=== PATIENT | male | born 1980 | race Caucasian/White ===

== ENCOUNTER 2017-11-19 12:22 | Emergency (ER) | payer MEDICARE ==
[2017-11-19] MEDS ORDERED: Ibuprofen 800 MG TAB ONE (13:25)
== END 2017-11-19 13:29 | disposition home or self-care (01) ==
LOC: ERS 12:22
DX: K02.9 Dental caries, unspecified (principal); I10 Essential (primary) hypertension; E03.9 Hypothyroidism, unspecified; F31.9 Bipolar disorder, unspecified; F41.9 Anxiety disorder, unspecified
CPT/HCPCS: 99282

== ENCOUNTER 2018-04-12 15:45 | Emergency (ER) | payer MEDICARE ==
[2018-04-12] MEDS ORDERED: Fluorescein Opthalmic Strip ONE (16:12)
[2018-04-12] MEDS ORDERED: Proparacaine 0.5% Opth 15 ML BOT ONE ×2 (16:12→16:35)
[2018-04-12 16:14] LABS: #Basophils 0.1 thou/uL (0.0-0.2); #Eosinphils 0.1 thou/uL (0.0-0.7); #Lymphocytes 1.9 thou/uL (1.20-3.40); #Monocytes 0.9 thou/uL (0.11-0.59); #Neutrophils 6.9 thou/uL (1.40-6.50); %Basophils 0.6 % (0.0-1.0); %Eosinophils 0.7 % (0.0-10.0); %Lymphocytes 19.4 % (21.0-51.0); %Monocytes 9.2 % (0.0-10.0); %Neutrophils 70.1 % (42.0-75.0); Hemoglobin 17.6 g/dL (14.0-18.0); Mean Corpuscular HGB CONC 35.6 g/dL (32.0-36.0); Mean Corpuscular Hemoglobin 30.8 pg (27.0-31.0); Mean Corpuscular Volume 86.5 fL (78.0-98.0); Mean Platelet Volume 6.2 fL (7.4-10.4); Platelet Count 162 thou/uL (130-400); RBC Distribution Width 12.7 % (11.5-14.5); Red Blood Cell (RBC) Count 5.73 mill/uL (4.70-6.10); White Blood Cell (WBC) Count 9.8 thou/uL (4.8-10.8)
[2018-04-12 16:36] LABS: ALT (SGPT) 78 U/L (8-55); AST (SGOT) 37 U/L (5-34); Albumin 4.9 g/dL (3.5-5.0); Alkaline Phosphatase 76 U/L (40-150); Anion Gap 16 mmol/L (10-20); BUN (Urea Nitrogen) 18 mg/dL (8.9-20.6); Bilirubin, Total 0.6 mg/dL (0.2-1.2); Calc. Creatinine Clearance 0 mL/min (70-130); Calcium 9.9 mg/dL (7.8-10.44); Carbon Dioxide 21 mmol/L (22-29); Chloride 103 mmol/L (98-107); Estimated GFR-MDRD 64; Glucose 80 mg/dL (70-105); Potassium 3.7 mmol/L (3.5-5.1); Protein, Total 7.9 g/dL (6.0-8.3); Sodium 136 mmol/L (136-145)
== END 2018-04-12 18:34 | disposition home or self-care (01) ==
LOC: ERS 15:45
DX: T54.3X1A Toxic effect of corrosive alkalis and alkali-like substances, accidental (unintentional), initial encounter (principal); T28.5XXA Corrosion of mouth and pharynx, initial encounter; T26.92XA Corrosion of left eye and adnexa, part unspecified, initial encounter; H16.203 Unspecified keratoconjunctivitis, bilateral; I10 Essential (primary) hypertension; E03.9 Hypothyroidism, unspecified; G89.29 Other chronic pain; F31.9 Bipolar disorder, unspecified; F41.9 Anxiety disorder, unspecified; Z79.899 Other long term (current) drug therapy; Y93.G1 Activity, food preparation and clean up
CPT/HCPCS: 80053; 85025; 90471; 99284; G0390

== ENCOUNTER 2019-11-27 18:04 | Inpatient (IN) | payer MEDICARE ==
[~2019-11-27 18:04] MED LIST: Iopamidol-370 76% 500 ML 1 ML ONE
--- NOTE | 2019-11-27 19:11 | CT ---
CT head noncontrast HISTORY: Left-sided weakness. FINDINGS: There is no evidence of acute intracranial hemorrhage or infarct. The ventricles appear nor mal in size, shape and position. There is no mass effect or shift of midline structures. Visualized paranasal sinuses remain well aerated. IMPRESSION: No acute intracranial abnormalities are demonstrated. Findings were called to Dr. Lomax in the emergency department at 1904 hours. Code CR.
[2019-11-27 19:26] LABS: #Basophils 0.1 thou/uL (0.0-0.2); #Eosinphils 0.1 thou/uL (0.0-0.7); #Lymphocytes 1.7 thou/uL (1.20-3.40); #Monocytes 0.8 thou/uL (0.11-0.59); #Neutrophils 6.4 thou/uL (1.40-6.50); %Basophils 0.8 % (0.0-1.0); %Eosinophils 0.8 % (0.0-10.0); %Lymphocytes 19.1 % (21.0-51.0); %Neutrophils 70.3 % (42.0-75.0); Hemoglobin 15.3 g/dL (14.0-18.0); Mean Corpuscular HGB CONC 35.4 g/dL (32.0-36.0); Mean Corpuscular Hemoglobin 30.8 pg (27.0-31.0); Mean Corpuscular Volume 86.9 fL (78.0-98.0); Mean Platelet Volume 8.3 fL (7.4-10.4); Platelet Count 115 thou/uL (130-400); RBC Distribution Width 13.1 % (11.5-14.5); Red Blood Cell (RBC) Count 4.96 mill/uL (4.70-6.10); White Blood Cell (WBC) Count 9.3 thou/uL (4.8-10.8)
[2019-11-27] MEDS ORDERED: Labetalol HCl 100 MG/20 ML VIAL ONE (19:26)
--- NOTE | 2019-11-27 19:30 | CT ---
CT arteriogram neck with IV contrast and 3-D imaging CT arteriogram head with IV contrast and 3-D imaging CT brain with IV contrast HISTORY: Left-sided weakness. Altered mental status. FINDINGS: Good contrast opacification of the aortic arch with normal origin of the great vessels. Goo d flow into each vertebral and carotid system. Each carotid bifurcation is widely patent. No evidence of dissection or thrombus. Nonspecific lymph nodes along each jugular chain. [place] is intact. Good flow into each cerebral and cerebellar system. No enhancing brain lesions are apparent. IMPRESSION: No abnormalities are demonstrated. Findings were called to Dr. Lomax in the emergency department at 1924 hours. Code CR.
[2019-11-27 19:32] LABS: PTT 23.6 SEC (22.9-36.1); Prothrombin Time 12.7 SEC (12.0-14.7)
[2019-11-27 19:37] LABS: Band 3 % (5-11); Eosinophils 3 % (0-10); Lymphocytes 20 % (21-51); MDiff Complete? YES; Monocytes 6 % (0-10); Neutrophil 66 % (42-75); Platelet Morphology Comment Appears Decreased; RBC Morphology Normal; Reactive Lymphocytes 2 % (0-10)
--- NOTE | 2019-11-27 19:57 | RAD ---
Chest one view HISTORY: Chest pain. Hypertension. FINDINGS: Cardiac silhouette is magnified by projection. Pulmonary vasculature is unremarkable. Media stinum is midline. No confluent airspace consolidation or evidence of pneumothorax. library monitor leads overlie the chest. IMPRESSION: No active cardiopulmonary abnormalities are demonstrated.
[2019-11-27 20:02] LABS: ALT (SGPT) 120 U/L (8-55); AST (SGOT) 66 U/L (5-34); Albumin 4.6 g/dL (3.5-5.0); Alkaline Phosphatase 63 U/L (40-110); Anion Gap 14 mmol/L (10-20); BUN (Urea Nitrogen) 11 mg/dL (8.9-20.6); Bilirubin, Total 0.4 mg/dL (0.2-1.2); Calc. Creatinine Clearance 0 mL/min (70-130); Calcium 9.7 mg/dL (7.8-10.44); Carbon Dioxide 26 mmol/L (22-29); Chloride 104 mmol/L (98-107); Estimated GFR-MDRD 82; Globulin 3.1 g/dL (2.4-3.5); Glucose 82 mg/dL (70-105); Potassium 4.3 mmol/L (3.5-5.1); Protein, Total 7.7 g/dL (6.0-8.3); Sodium 140 mmol/L (136-145)
[2019-11-27] MEDS ORDERED: niCARdipine 20MG In NaCl 20 MG/200 ML BAG ONE (20:43)
[2019-11-27 21:57] VITALS: BMI 37.5
[2019-11-27] MEDS ORDERED: hydrALAZINE 20 MG/ML VIAL SLOW IVP PRN (22:33)
[2019-11-27] MEDS ORDERED: Labetalol HCl 100 MG/20 ML VIAL SLOW IVP PRN (22:33)
[2019-11-27] MEDS ORDERED: niCARdipine 25 MG in Sodium Chloride 0.9% 250 ML 240 ML IVPB PRN (22:33)
[2019-11-27] MEDS ORDERED: Ondansetron ODT 4 MG TAB PO PRN (22:43)
[2019-11-27] MEDS ORDERED: Calcium Carbonate 500 MG ChewTAB PO PRN (22:43)
[2019-11-27] MEDS ORDERED: Bisacodyl 5 MG TAB PO PRN (22:43)
[2019-11-27] MEDS ORDERED: Bisacodyl 10 MG SUPP PR PRN (22:43)
[2019-11-27] MEDS ORDERED: Metoprolol Tartrate 25 MG TAB PO SCH (22:45)
[2019-11-27] MEDS ORDERED: Mirtazapine 30 MG TAB PO SCH (23:00)
[2019-11-27] MEDS: Communication Order-Pharmacy FS SCH (23:09)
[2019-11-27] MEDS: Ondansetron PF 4 MG/2 ML Vial IVP PRN (23:10)
[2019-11-27] MEDS: Acetaminophen 325 MG TAB PO PRN (23:16)
[2019-11-28] MEDS ORDERED: Labetalol HCl 100 MG/20 ML VIAL SLOW IVP PRN (00:49)
[2019-11-28] MEDS ORDERED: cloNIDine 0.1 MG TAB PO PRN (00:49)
--- NOTE | 2019-11-28 01:50 | HP ---
CHIEF COMPLAINT: Stroke-like symptoms. HISTORY OF PRESENT ILLNESS: The patient is a 39-year-old male with hypertension, anxiety, bipolar disorder, presented to the emergency room with above complaints. History obtained from the patient. Over the last 2 days, the patient has been having issues with high blood pressure. Today, at around 3:30 p.m., while he was at home resting, he had sudden onset of dizziness along with disorientation as well as pressure behind his head. He was nauseous and had difficulty concentrating. He also had numbness on his left side of his body. He had difficulty ambulating as well. He was found to have elevated blood pressure. He presented to the emergency room. In the emergency room, his disorientation got worse. His NIH was 3. He received tPA. His symptoms started improving after tPA. His blood pressure at home was 172/117. At this time, his symptoms have significantly improved. He still has some left-sided weakness mainly in his left leg. His confusion has improved significantly. PAST MEDICAL HISTORY: 1. Hypertension. 2. Hypothyroidism. 3. Chronic low back pain. 4. Anxiety. 5. Bipolar disorder. 6. Depression. PAST SURGICAL HISTORY: 1. Right carpal tunnel surgery. 2. Vasectomy. 3. Colonoscopy. 4. Nasal surgery. ALLERGIES: THE PATIENT IS ALLERGIC TO CITALOPRAM, CYMBALTA, PROZAC, AND TOPAMAX. CURRENT HOME MEDICATIONS: 1. Fish oil 200 mg daily. 2. Gabapentin 300 mg 3 times a day. 3. Levothyroxine 50 mcg daily. 4. [place] 450 mg b.i.d. 5. Metoprolol tartrate 50 mg b.i.d. 6. Remeron 30 mg at bedtime. 7. Multivitamin one tablet daily. 8. Seroquel 800 mg at bedtime. 9. Effexor extended release 225 mg at bedtime. 10. Vitamin B complex daily. SOCIAL HISTORY: The patient currently lives at home with his family. He denies current use of smoking, alcohol, or drug use. FAMILY HISTORY: Positive for diabetes and heart disease. REVIEW OF SYSTEMS: All other review of systems were reviewed and were found negative. PHYSICAL EXAMINATION: VITAL SIGNS: On ER arrival, temperature 99, respirations of 20, pulse rate of 110 with a blood pressure of 189/92 with O2 saturation of 99% on room air. GENERAL: A 39-year-old male, in no apparent distress. HEENT: Head, atraumatic and normocephalic. Sclerae anicteric. Moist mucous membranes. No oral lesion. NECK: Supple. No JVD appreciated. No carotid bruit. LUNGS: Clear to auscultation bilaterally. No wheezing, rales, or rhonchi. HEART: S1 and S2 present. Regular rate and rhythm. No rubs or gallops. ABDOMEN: Soft, nontender. Bowel sounds present. No rebound or guarding. EXTREMITIES: No edema or calf tenderness. NEUROLOGIC: Cranial nerves 2 through 12 are normal on examination. Power was 5/5 in all extremities except for 4/5 in left lower extremity. It was almost 5/5 in left upper extremity. Sensation to touch was slightly diminished on the left upper and left lower extremity. Gjzpcq-ye-anfz test was normal. PSYCHIATRIC: Alert, awake, oriented x3. SKIN: Warm and dry. LYMPH NODES: No palpable lymph nodes in the neck. PERIPHERAL VASCULAR: Radial pulses palpable bilaterally. MUSCULOSKELETAL: No joint swelling tenderness. LABORATORY FINDINGS: 1. CBC showed WBC 9.3, hemoglobin 15.3, hematocrit 43.1, platelet of 115. 2. PT, INR, PTT normal range. 3. Chemistry showed sodium 140, potassium 4.3, chloride 104, bicarb 26, BUN of 11, and creatinine 1. 4. AST of 66, ALT of 120. 5. Troponins were negative. IMAGING STUDIES: 1. EKG by my review showed sinus tachycardia with heart rate of 105. No significant ST-T wave changes. 2. CT scan of the brain by my review was negative for acute findings. 3. Chest x-ray by my review was negative for infiltrate or edema. 4. CT angiogram of the head and neck was negative for hemodynamically significant stenosis. IMPRESSION: 1. Suspected acute cerebrovascular accident, status post tPA. 2. hypertensive crisis with encephalopathy. 3. Anxiety. 4. Depression, mild, stable. The patient denies any suicidal ideation. 5. Bipolar disorder. 6. Abnormal liver function tests of unclear etiology. 7. Hypothyroidism. 8. Chronic low back pain. 9. Obesity with a BMI of 37.5. PLAN: The patient will be monitored in the intensive care unit. We will complete stroke workup. His lithium level was 0.382. Urine drug screen will be obtained. We will resume metoprolol along with his other home medications. Resume Seroquel, Effexor and Remeron. Frequent neuro checks. We will repeat CT scan of the brain in a.m. We will check fasting lipid profile. Recheck labs. The patient understands the above plan of care. Job ID: [id number]
[2019-11-28] MEDS: Acetaminophen 325 MG TAB PO PRN ×3 (05:45→20:57)
[2019-11-28] MEDS: Levothyroxine Sodium 50 MCG TAB PO SCH (05:45)
[2019-11-28 05:57] LABS: Benzodiazepine Screen Detected (NotDetected); Medtox Reader # READER 1; Tricyclic Screen Detected (NotDetected)
[2019-11-28 05:58] LABS: Amphetamine Not Detected (NotDetected); Barbiturates Screen Not Detected (NotDetected); Cocaine Metabolite Screen Not Detected (NotDetected); Medtox Control Line Valid? VALID (VALID); Methadone Not Detected (NotDetected); Methamphetamine Not Detected (NotDetected); Opiate Screen Not Detected (NotDetected); Oxycodone Screen Not Detected (NotDetected); Phencyclidine (PCP) Not Detected (NotDetected); THC/Cannabinoid Screen Not Detected (NotDetected)
--- NOTE | 2019-11-28 08:05 | CT ---
PRELIMINARY REPORT/[facility]/AFTER HOURS PROCEDURE CT HEAD WITHOUT INTRAVENOUS CONTRAST: CLINICAL HISTORY: F/U CVA TECHNIQUE: Axial computed tomography images of the head/brain without intravenous contrast. COMPARISON: CT\SR - CT BRAIN WO CON - 11/27/2019 07:02 PM PULMONARY FELLOW FINDINGS: BRAIN: No acute intraparenchymal hemorrhage. No mass lesion. No CT evidence for acute territorial inf arct. No midline shift or extra-axial collection. VENTRICLES: No hydrocephalus. ORBITS: The orbits are unremarkable. SINUSES AND MASTOIDS: The paranasal sinuses and mastoid air cells are clear. SOFT TISSUES: No significant facial or scalp soft tissue swelling evident. No radiopaque foreign body is seen. BONES: No acute skull fracture. IMPRESSION: No acute intracranial abnormality. ELECTRONICALLY SIGNED BY: Stephen Moreno MD Nov 28, 2019 5:12:19 AM PULMONARY FELLOW This report is intended for review by the ordering physician only, in accordance of law. If you recei ve this report in error, please call [facility] at [phone]. FINAL REPORT EMERGENT AFTER HOURS CT BRAIN WITHOUT IV CONTRAST: 11/28/2019 4:58 a.m. No mass or bleed or other acute process. Stable from 11/27/2019. This report is in agreement with the preliminary report. CODE QA POS: [facility]
[2019-11-28] MEDS: Ondansetron PF 4 MG/2 ML Vial IVP PRN (08:15)
--- NOTE | 2019-11-28 09:05 | PDOC.HOSPP ---
- Subjective Encounter Date: 11/28/19 Encounter Time: 09:02 Subjective: alert, oriented, no weaknesss - Objective Vital Signs & Weight: Vital Signs (12 hours) Temp Pulse Resp BP Pulse Ox 11/28/19 08:00 97.7 F 11/28/19 04:00 98.8 F 11/28/19 00:00 98.6 F 11/27/19 22:33 95 11/27/19 22:12 98.5 F 105 H 16 145/85 H 97 11/27/19 22:00 98.5 F 96 Weight Weight 261 lb 3.964 oz Most Recent Monitor Data Heart Rate from ECG 98 NIBP 132/79 NIBP BP-Mean 96 Respiration from ECG 15 SpO2 96 I&O: 11/27/19 11/28/19 11/29/19 06:59 06:59 06:59 Intake Total 1100 0 Output Total 1800 0 Balance -700 0 Result Diagrams: 11/27/19 19:16 11/27/19 19:16 Additional Labs: Accuchecks 11/27/19 19:05 POC Glucose 83 Hospitalist ROS - Medication Medications: Active Medications Generic Name Dose Route Start Last Admin Trade Name Freq PRN Reason Stop Dose Admin Acetaminophen 650 mg 11/27/19 22:33 11/28/19 05:45 Tylenol PO 650 mg Q6H PRN Administration Headache/Fever/Mild Pain (1-3) Levothyroxine Sodium 50 mcg 11/28/19 06:00 11/28/19 05:45 Synthroid PO 50 mcg 0600 BISI Administration Miscellaneous Information 1 each 11/27/19 22:33 11/27/19 23:09 Communication Order-Pharmacy FS 11/28/19 22:34 1 each NOW BISI Administration Ondansetron HCl 4 mg 11/27/19 22:43 11/28/19 08:15 Zofran IVP 4 mg Q6H PRN Administration Nausea/Vomiting - Exam General Appearance: awake alert Neck: no JVD Heart: RRR, no murmur Respiratory: CTAB Gastrointestinal: soft, normal bowel sounds Extremities: no edema Neurological: cranial nerve grossly intact, no focal deficits Hosp A/P (1) CVA (cerebral vascular accident) Code(s): I63.9 - CEREBRAL INFARCTION, UNSPECIFIED Status: Acute (2) History of thrombolytic therapy Code(s): Z92.89 - PERSONAL HISTORY OF OTHER MEDICAL TREATMENT Status: Acute (3) Hypertensive urgency Code(s): I16.0 - HYPERTENSIVE URGENCY Status: Acute (4) Bipolar 1 disorder Code(s): F31.9 - BIPOLAR DISORDER, UNSPECIFIED Status: Acute - Plan post TPA, neuro exam normal will need ASA. statin neuro consult pending, MRI cancelled
--- NOTE | 2019-11-28 09:13 | CON ---
DATE OF CONSULTATION: 11/28/2019 CONSULTING PHYSICIAN: Hospitalist Service. IMPRESSION: Transient ischemic attack versus hemiplegic migraine. PLAN: 1. Aspirin and a statin. 2. MRI of the brain later. HISTORY OF PRESENT ILLNESS: Mr. Chavarria is a 39-year-old man with a long history of chronic headaches and hypertension. He reports developing some left-sided weakness and numbness. He was seen in the emergency room and had a negative CT scan of the brain. He was markedly hypertensive on arrival with diastolic pressures of around 117. He received tPA and was brought to the unit. His symptoms have resolved. He denies history of similar events. He reports chronic headaches, which can go on for days at a time. He takes Excedrin on a daily basis. He is not on a statin. PAST MEDICAL HISTORY: Hypertension, headaches. ALLERGIES: CITALOPRAM, CYMBALTA, PROZAC, AND TOPAMAX. SOCIAL HISTORY: No tobacco, alcohol, or drugs. FAMILY HISTORY: Noncontributory. REVIEW OF SYSTEMS: Ten-system review of systems is otherwise unremarkable. PHYSICAL EXAMINATION: GENERAL: He is a slightly overweight middle-aged man, in no acute distress. VITAL SIGNS: Blood pressure 149/86, pulse 100 and sinus rhythm, and respirations 17. HEENT: The patient is photophobic and wearing sunglasses. Cranium, normocephalic and atraumatic. NECK: Supple. EXTREMITIES: No cyanosis or edema. NEUROLOGIC: He is alert and appropriate. His speech is fluent and clear. His exam is nonfocal. DIAGNOSTIC STUDIES: Followup CT scan of the brain this morning was unremarkable. SUMMARY: This is a middle-aged man with hypertension, who has had chronic headaches, who presented with headache, nausea, vomiting, dizziness, lateralized weakness, and numbness. As possible, this was all purely migraine related. His blood pressure is under good control now. Continue aspirin and low-dose statin. Job ID: [id number]
--- NOTE | 2019-11-28 09:32 | CON ---
DATE OF CONSULTATION: CONSULTING PHYSICIAN: Hospitalist Group. REASON FOR CONSULTATION: Stroke. HISTORY OF PRESENT ILLNESS: This is a 39-year-old, who presented yesterday with left-sided weakness and received tPA, anticipating that this was a stroke. His symptoms resolved and he now feels better. Head CT failed to show any abnormalities. PAST MEDICAL HISTORY: 1. Hypertension. 2. Migraine headaches. 3. Hypothyroidism. 4. Chronic low back pain. 5. Anxiety. 6. Bipolar disorder. 7. Depression. PAST SURGICAL HISTORY: 1. Right carpal tunnel surgery. 2. Vasectomy. 3. Colonoscopy. 4. Nasal surgery. ALLERGIES: CITALOPRAM, CYMBALTA, PROZAC, TOPAMAX. MEDICATIONS: Prior to admission; 1. Fish oil. 2. Gabapentin. 3. Levothyroxine. 4. [place]. 5. Metoprolol. 6. Remeron. 7. Vitamins. 8. Seroquel. 9. Effexor. 10. Vitamin B. SOCIAL HISTORY: Nonsmoker. Does not consume alcohol. Lives at home with his family. He is a dental service technician for house. FAMILY MEDICAL HISTORY: Remarkable for diabetes and heart disease. REVIEW OF SYSTEMS: A 12-point review of systems is otherwise negative. PHYSICAL EXAMINATION: VITAL SIGNS: Temperature 97.7, pulse 98, blood pressure 132/79, O2 saturation 96%. GENERAL: He is awake, alert, in no distress. HEENT: Unremarkable. NECK: No adenopathy or JVD. LUNGS: Clear. CARDIAC: S1 and S2, regular without murmur. ABDOMEN: Soft, obese, nontender, and nondistended. EXTREMITIES: No clubbing, cyanosis, or edema. NEUROLOGIC: He has 5/5 motor strength throughout. No sensory deficits. No cranial nerve deficits. LABORATORY DATA: White blood cell count 9.3, hematocrit 43.1, and platelet count 115. Sodium 140, potassium 4.3, BUN 11, creatinine 1.0, glucose 83. ASSESSMENT: Possible transient ischemic attack versus stroke versus atypical migraine presentation. PLAN: Neuro symptoms seem to be resolved. He is waiting out his 24 hours in the ICU after receiving tPA. Pulmonary Critical Care has no recommendations and will follow peripherally. Job ID: [id number]
[2019-11-28] MEDS: Docusate 100 MG CAP PO SCH ×2 (09:36→20:28)
[2019-11-28] MEDS: Famotidine 20 MG TAB PO SCH ×2 (09:36→20:25)
[2019-11-28] MEDS: Gabapentin 300 MG CAP PO SCH ×3 (09:36→20:28)
[2019-11-28] MEDS: Multivit, Therapeutic 1 TAB PO SCH (09:36)
[2019-11-28] MEDS: Fish Oil 1,000 MG CAP PO SCH (09:36)
[2019-11-28] MEDS: Metoprolol Tartrate 50 MG TAB PO SCH ×2 (09:36→20:28)
[2019-11-28] MEDS: Lithium Carbonate ER 450 mg Tablet PO SCH ×2 (09:37→20:24)
[2019-11-28] MEDS: Stress 600 With Zinc 1 TAB PO SCH (09:39)
[2019-11-28] MEDS ORDERED: Venlafaxine HCl XR 75 MG CAP PO SCH (09:45)
[2019-11-28] MEDS: Mirtazapine 30 MG TAB PO SCH (20:24)
[2019-11-28] MEDS: Atorvastatin Calcium 40 MG TAB PO SCH (20:28)
[2019-11-28] MEDS: Aspirin 325 mg Enteric Coated Tablet PO SCH (20:28)
[2019-11-28] MEDS: Enoxaparin Sodium 40 MG/0.4 ML SYRINGE SC SCH (20:29)
[2019-11-28 21:09] LABS: #Eosinphils 0.1 thou/uL (0.0-0.7); #Lymphocytes 1.6 thou/uL (1.20-3.40); #Monocytes 0.8 thou/uL (0.11-0.59); #Neutrophils 6.7 thou/uL (1.40-6.50); %Basophils 0.5 % (0.0-1.0); %Eosinophils 1.2 % (0.0-10.0); %Lymphocytes 17.4 % (21.0-51.0); %Monocytes 8.4 % (0.0-10.0); %Neutrophils 72.6 % (42.0-75.0); Hemoglobin 15.1 g/dL (14.0-18.0); Mean Corpuscular HGB CONC 35.1 g/dL (32.0-36.0); Mean Corpuscular Hemoglobin 30.7 pg (27.0-31.0); Mean Corpuscular Volume 87.5 fL (78.0-98.0); Mean Platelet Volume 6.3 fL (7.4-10.4); Platelet Count 146 thou/uL (130-400); Red Blood Cell (RBC) Count 4.94 mill/uL (4.70-6.10); White Blood Cell (WBC) Count 9.2 thou/uL (4.8-10.8)
[2019-11-28 21:28] LABS: ALT (SGPT) 105 U/L (8-55); AST (SGOT) 46 U/L (5-34); Albumin 4.5 g/dL (3.5-5.0); Alkaline Phosphatase 66 U/L (40-110); Anion Gap 12 mmol/L (10-20); BUN (Urea Nitrogen) 10 mg/dL (8.9-20.6); Bilirubin, Total 0.6 mg/dL (0.2-1.2); Calc. Creatinine Clearance 157 mL/min (70-130); Calcium 9.4 mg/dL (7.8-10.44); Carbon Dioxide 25 mmol/L (22-29); Chloride 105 mmol/L (98-107); Estimated GFR-MDRD 78; Globulin 2.7 g/dL (2.4-3.5); Glucose 89 mg/dL (70-105); Protein, Total 7.2 g/dL (6.0-8.3); Sodium 138 mmol/L (136-145)
[2019-11-28] MEDS: Communication Order-Pharmacy FS SCH (23:39)
[2019-11-29 04:17] LABS: Cardiac Risk 6.3 (Less than 4.5); Cholesterol 226 mg/dl (< 200 Desired); HDL Cholesterol 36 mg/dL (>60 Neg Risk); Triglycerides 480 mg/dL (Less than 150)
[2019-11-29] MEDS: Levothyroxine Sodium 50 MCG TAB PO SCH (06:11)
[2019-11-29] MEDS: Acetaminophen 325 MG TAB PO PRN ×2 (08:15→17:39)
[2019-11-29] MEDS: Ondansetron PF 4 MG/2 ML Vial IVP PRN (08:17)
--- NOTE | 2019-11-29 08:22 | PDOC.HOSPP ---
- Subjective Encounter Date: 11/29/19 Encounter Time: 08:22 Subjective: no weakness, cont to have ALBA - Objective Vital Signs & Weight: Vital Signs (12 hours) Temp 11/29/19 04:00 98.4 F 11/29/19 00:00 98 F Weight Weight 255 lb 11.779 oz Most Recent Monitor Data Heart Rate from ECG 88 NIBP 103/67 NIBP BP-Mean 79 Respiration from ECG 18 SpO2 92 I&O: 11/28/19 11/29/19 11/30/19 06:59 06:59 06:59 Intake Total 1100 1010 Output Total 1800 3260 Balance -700 -2250 Result Diagrams: 11/28/19 21:02 11/28/19 21:02 Hospitalist ROS - Medication Medications: Active Medications Generic Name Dose Route Start Last Admin Trade Name Freq PRN Reason Stop Dose Admin Acetaminophen 650 mg 11/27/19 22:33 11/29/19 08:15 Tylenol PO 650 mg Q6H PRN Administration Headache/Fever/Mild Pain (1-3) Aspirin 325 mg 11/28/19 21:00 11/28/19 20:28 Ecotrin PO 325 mg HS BISI Administration Atorvastatin Calcium 40 mg 11/28/19 21:00 11/28/19 20:28 Lipitor PO 40 mg HS BISI Administration Docusate Sodium 100 mg 11/28/19 09:00 11/28/19 20:28 Colace PO 100 mg BID BISI Administration Enoxaparin Sodium 40 mg 11/28/19 21:00 11/28/19 20:29 Lovenox SC 40 mg 2100 BISI Administration Famotidine 20 mg 11/28/19 09:00 11/28/19 20:25 Pepcid PO 20 mg BID BISI Administration Fish Oil 2,000 mg 11/28/19 09:00 11/28/19 09:36 Fish Oil PO 2,000 mg DAILY BISI Administration Gabapentin 300 mg 11/28/19 09:00 11/28/19 20:28 Neurontin PO 300 mg TID BISI Administration Levothyroxine Sodium 50 mcg 11/28/19 06:00 11/29/19 06:11 Synthroid PO 50 mcg 0600 BISI Administration [place] Carbonate 450 mg 11/28/19 09:00 11/28/19 20:24 Eskalith Er PO 450 mg BID BISI Administration Metoprolol Tartrate 50 mg 11/28/19 09:00 11/28/19 20:28 Lopressor PO 50 mg BID BISI Administration Mirtazapine 30 mg 11/28/19 21:00 11/28/19 20:24 Remeron PO 30 mg HS BISI Administration Multivitamins 1 tab 11/28/19 09:00 11/28/19 09:36 Theragran PO 1 tab DAILY BISI Administration Multivitamins/Zinc 1 tab 11/28/19 09:00 11/28/19 09:39 Stress 600 With Zinc PO 1 tab DAILY BISI Administration Ondansetron HCl 4 mg 11/27/19 22:43 11/29/19 08:17 Zofran IVP 4 mg Q6H PRN Administration Nausea/Vomiting Quetiapine Fumarate 800 mg 11/28/19 21:00 11/28/19 20:23 Seroquel PO 800 mg HS BISI Administration - Exam General Appearance: awake alert Neck: no JVD Heart: RRR, no murmur Respiratory: CTAB, no wheezes Gastrointestinal: soft, normal bowel sounds Extremities: no edema Neurological: no focal deficits Hosp A/P (1) CVA (cerebral vascular accident) Code(s): I63.9 - CEREBRAL INFARCTION, UNSPECIFIED Status: Acute Qualifiers: Laterality of affected vessel: unspecified (2) History of thrombolytic therapy Code(s): Z92.89 - PERSONAL HISTORY OF OTHER MEDICAL TREATMENT Status: Acute (3) Hypertensive urgency Code(s): I16.0 - HYPERTENSIVE URGENCY Status: Acute (4) Bipolar 1 disorder Code(s): F31.9 - BIPOLAR DISORDER, UNSPECIFIED Status: Acute (5) Dyslipidemia (high LDL; low HDL) Code(s): E78.5 - HYPERLIPIDEMIA, UNSPECIFIED Status: Acute - Plan post TPA, neuro exam normal cont ASA. statin BP labile check TSH
[2019-11-29] MEDS: Lithium Carbonate ER 450 mg Tablet PO SCH ×2 (09:24→22:14)
[2019-11-29] MEDS: Gabapentin 300 MG CAP PO SCH ×3 (09:25→22:13)
[2019-11-29] MEDS: Metoprolol Tartrate 50 MG TAB PO SCH ×2 (09:25→22:13)
[2019-11-29] MEDS: Famotidine 20 MG TAB PO SCH ×2 (09:25→22:13)
[2019-11-29] MEDS: Stress 600 With Zinc 1 TAB PO SCH (09:25)
[2019-11-29] MEDS: Multivit, Therapeutic 1 TAB PO SCH (09:25)
[2019-11-29] MEDS: Fish Oil 1,000 MG CAP PO SCH (09:25)
[2019-11-29] MEDS: Docusate 100 MG CAP PO SCH ×2 (09:26→22:13)
[2019-11-29 10:09] LABS: Free Thyroxine Index 1.37 (1.4-3.1); Thyroid Stimulating Hormone 2.1489 uIU/mL (0.35-4.94)
[2019-11-29] MEDS ORDERED: Venlafaxine HCl XR 75 MG CAP PO SCH (21:00)
[2019-11-29] MEDS: Enoxaparin Sodium 40 MG/0.4 ML SYRINGE SC SCH (22:11)
[2019-11-29] MEDS: Mirtazapine 30 MG TAB PO SCH (22:13)
[2019-11-29] MEDS: Aspirin 325 mg Enteric Coated Tablet PO SCH (22:13)
[2019-11-29] MEDS: Atorvastatin Calcium 40 MG TAB PO SCH (22:13)
[2019-11-30] MEDS: Levothyroxine Sodium 50 MCG TAB PO SCH (07:17)
--- NOTE | 2019-11-30 09:07 | DIS ---
DATE OF ADMISSION: 11/27/2019 DATE OF DISCHARGE: 11/30/2019 DISPOSITION: Discharged home. PRIMARY CARE PROVIDER: Pat Mcmahon. FINAL DIAGNOSES: 1. Migraine with hemiplegia. 2. Hypertensive urgency. 3. Dyslipidemia. 4. History of thrombolytic therapy. 5. Bipolar disorder. DISCHARGE MEDICINES: Same as his home medicines except for the addition of; 1. Lipitor 40 mg p.o. at bedtime. 2. He takes Seroquel 800 mg a day. 3. Levothyroxine 50 mcg a day. 4. [place] carbonate 450 mg p.o. b.i.d. 5. Metoprolol 50 mg b.i.d. 6. Mirtazapine 30 mg at bedtime. 7. Effexor 225 mg at bedtime. 8. Fish oil daily. 9. Gabapentin 300 mg t.i.d. 10. Vitamins. 11. Aspirin 81 mg a day. ALLERGIES: STATED ALLERGIES TO CELEXA, CYMBALTA, PROZAC, AND TOPAMAX. DIET: Heart healthy. CODE STATUS: Full. PENDING AT THE TIME OF DISCHARGE: Nothing. HOSPITAL COURSE: The patient was seen in the emergency room with signs and symptoms of a stroke. The patient was given Activase for suspected acute CVA in the emergency room with rapid resolution of his neurological symptoms. He was also given medications for hypertension. He was admitted to the Hospitalist Service through the [facility]. Home medicines were continued as mentioned before. His neurological exam resolved rapidly. It continued to be normal during his hospital stay. Initial laboratory: Comprehensive metabolic profile showed an AST of 66, ALT of 120, otherwise normal, cholesterol was 226, LDL was unable to be calculated due to high triglyceride level, HDL was low. Heart risk was rated at 6.3. [place] level was 0.38. CBC with white count of 9.3, hemoglobin 15.3, platelet count 115,000. The patient was seen in consultation by Dr. Andrea Ruby, Neurology; and Dr. Jose Lieberman, business liaison officer during his hospital stay. His CT [place] revealed no abnormalities of flow. Brain CT showed no acute abnormality. Echocardiogram was unremarkable. Currently, he is alert, oriented, has a normal neurological exam. He is being discharged. He has been told to see his primary care provider, BETTY [place] within three days. He will need a followup for further fasting lipid studies. Job ID: [id number]
[2019-11-30] MEDS: Stress 600 With Zinc 1 TAB PO SCH (10:07)
[2019-11-30] MEDS: Lithium Carbonate ER 450 mg Tablet PO SCH (10:07)
[2019-11-30] MEDS: Multivit, Therapeutic 1 TAB PO SCH (10:07)
[2019-11-30] MEDS: Famotidine 20 MG TAB PO SCH (10:07)
[2019-11-30] MEDS: Docusate 100 MG CAP PO SCH (10:08)
[2019-11-30] MEDS: Fish Oil 1,000 MG CAP PO SCH (10:08)
[2019-11-30] MEDS: Metoprolol Tartrate 50 MG TAB PO SCH (10:08)
[2019-11-30] MEDS: Gabapentin 300 MG CAP PO SCH (10:08)
--- NOTE | 2019-11-30 10:11 | CT ---
CT arteriogram neck with IV contrast and 3-D imaging CT arteriogram head with IV contrast and 3-D imaging CT brain with IV contrast HISTORY: Left-sided weakness. Altered mental status. FINDINGS: Good contrast opacification of the aortic arch with normal origin of the great vessels. Goo d flow into each vertebral and carotid system. Each carotid bifurcation is widely patent. No evidence of dissection or thrombus. Nonspecific lymph nodes along each jugular chain. [place] is intact. Good flow into each cerebral and cerebellar system. No enhancing brain lesions are apparent. IMPRESSION: No abnormalities are demonstrated. Findings were called to Dr. Lomax in the emergency department at 1924 hours. Code CR. Transcribed Date/Time: 11/30/2019 10:10 AM
[2019-11-30 11:57] VITALS: BP 148/83; TEMP 98.8
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
== END 2019-11-30 13:57 | disposition home or self-care (01) | DRG 103 ==
LOC: ERS 18:04 → CCU 21:45 → 2SE 11-29 18:23
PROVIDERS: ADMIT Internal Medicine; ATTEND Internal Medicine
DX: G43.909 Migraine, unspecified, not intractable, without status migrainosus (principal); G81.94 Hemiplegia, unspecified affecting left nondominant side; E03.9 Hypothyroidism, unspecified; I10 Essential (primary) hypertension; F31.9 Bipolar disorder, unspecified; G89.29 Other chronic pain; R40.2412 Glasgow coma scale score 13-15, at arrival to emergency department; F41.9 Anxiety disorder, unspecified; M54.5 Low back pain; I16.0 Hypertensive urgency; E78.1 Pure hyperglyceridemia; E66.9 Obesity, unspecified; Z98.52 Vasectomy status; Z88.8 Allergy status to other drugs, medicaments and biological substances; Z79.899 Other long term (current) drug therapy; Z79.890 Hormone replacement therapy; Z68.37 Body mass index [BMI] 37.0-37.9, adult
CPT/HCPCS: 36415; 36416; 70450; 70496; 70498; 71045; 80053; 80061; 80178; 80306; 84436; 84443; 84479; 84484; 85025; 85610; 85730; 93005; 93306; 94760; 96365; 96375; 96376; 99292; J1650; J2405; J2997; Q9967

== ENCOUNTER 2022-02-28 14:48 | Emergency (ER) | payer MEDICARE ==
[2022-02-28] MEDS ORDERED: Ketorolac Tromethamine 30 MG/ML VIAL ONE (15:59)
[2022-02-28] MEDS ORDERED: Acetaminophen 500 MG TAB ONE (15:59)
== END 2022-02-28 16:36 | disposition home or self-care (01) ==
LOC: ERS 14:48
DX: K04.01 Reversible pulpitis (principal); K02.9 Dental caries, unspecified; I10 Essential (primary) hypertension; E03.9 Hypothyroidism, unspecified; E78.5 Hyperlipidemia, unspecified; Z79.899 Other long term (current) drug therapy
CPT/HCPCS: 96372; 99282; J1885

== ENCOUNTER 2022-10-04 08:33 | Emergency (ER) | payer OTHER ==
[2022-10-04 09:05] LABS: #Basophils 0.1 thou/uL (0.0-0.2); #Eosinphils 0.1 thou/uL (0.0-0.7); #Lymphocytes 2.1 thou/uL (1.20-3.40); #Monocytes 1.4 thou/uL (0.11-0.59); #Neutrophils 16.2 thou/uL (1.40-6.50); %Basophils 0.3 % (0.0-1.0); %Eosinophils 0.3 % (0.0-10.0); %Lymphocytes 10.8 % (21.0-51.0); %Monocytes 6.8 % (0.0-10.0); %Neutrophils 81.7 % (42.0-75.0); Hemoglobin 15.9 g/dL (14.0-18.0); Mean Corpuscular HGB CONC 33.1 g/dL (32.0-36.0); Mean Corpuscular Volume 90.6 fl (78.0-98.0); Mean Platelet Volume 6.7 fL (7.4-10.4); Platelet Count 163 10x3/uL (130-400); RBC Distribution Width 12.9 % (11.5-14.5); Red Blood Cell (RBC) Count 5.31 mill/uL (4.70-6.10); White Blood Cell (WBC) Count 19.8 10x3/uL (4.8-10.8)
[2022-10-04 09:28] LABS: ALT (SGPT) 44 U/L (8-55); AST (SGOT) 27 U/L (5-34); Alkaline Phosphatase 101 U/L (40-110); Anion Gap 14 mmol/L (10-20); BUN (Urea Nitrogen) 21 mg/dL (8.9-20.6); Bilirubin, Total 0.8 mg/dL (0.2-1.2); Calc. Creatinine Clearance 0 mL/min (70-130); Calcium 10.1 mg/dL (7.8-10.44); Carbon Dioxide 23 mmol/L (22-29); Chloride 103 mmol/L (98-107); Estimated GFR 78; Globulin 3.2 g/dL (2.4-3.5); Glucose 98 mg/dL (70-105); Potassium 4.2 mmol/L (3.5-5.1); Protein, Total 8.2 g/dL (6.0-8.3); Sodium 136 mmol/L (136-145)
[2022-10-04] MEDS ORDERED: Ketorolac Tromethamine 30 MG/ML VIAL ONE (11:02)
[2022-10-04] MEDS ORDERED: Acetaminophen 500 MG TAB ONE (13:03)
== END 2022-10-04 16:05 | disposition home or self-care (01) ==
LOC: ERS 08:33
DX: J20.9 Acute bronchitis, unspecified (principal); D72.829 Elevated white blood cell count, unspecified; E03.9 Hypothyroidism, unspecified; E78.5 Hyperlipidemia, unspecified; I10 Essential (primary) hypertension; Z20.822 Contact with and (suspected) exposure to COVID-19
CPT/HCPCS: 71045; 80053; 83605; 84484; 85025; 87040; 87804 ×2; 93005; U0003; U0005; 36415; 96372; J1885

== ENCOUNTER 2022-10-30 13:30 | Emergency (ER) | payer OTHER | END 2022-10-30 14:09 | disposition home or self-care (01) | LOC: ERS 13:30 | DX: K04.7 Periapical abscess without sinus (principal); K02.9 Dental caries, unspecified; I10 Essential (primary) hypertension; E78.5 Hyperlipidemia, unspecified | CPT/HCPCS: 99282 ==

== ENCOUNTER 2022-11-19 19:00 | Outpatient (CLI) | payer OTHER | END 2022-11-19 19:01 | disposition home or self-care (01) | LOC: SLEEPLAB 19:00 | PROVIDERS: ATTEND Family Medicine | DX: G47.33 Obstructive sleep apnea (adult) (pediatric) (principal); R53.83 Other fatigue; F31.9 Bipolar disorder, unspecified; E66.9 Obesity, unspecified; R06.83 Snoring; I10 Essential (primary) hypertension | CPT/HCPCS: 95811 ==

== ENCOUNTER 2022-12-06 12:59 | Emergency (ER) | payer OTHER | END 2022-12-06 14:19 | disposition home or self-care (01) | LOC: ERS 12:59 | DX: K02.9 Dental caries, unspecified (principal); K05.10 Chronic gingivitis, plaque induced | CPT/HCPCS: 99282 ==

== ENCOUNTER 2023-01-12 14:37 | Emergency (ER) | payer OTHER ==
[~2023-01-12 14:37] MED LIST changes: -Iopamidol-370 76% 500 ML 1 ML ONE; +Iopamidol-370 76% 500 ML MDV (1 ML CHARGE) ONE
[2023-01-12] MEDS ORDERED: Acetaminophen 500 MG TAB ONE (15:33)
[2023-01-12] MEDS ORDERED: Ketorolac Tromethamine 30 MG/ML VIAL ONE (15:33)
[2023-01-12 15:52] LABS: #Basophils 0.1 thou/uL (0.0-0.2); #Lymphocytes 1.5 thou/uL (1.20-3.40); #Monocytes 0.8 thou/uL (0.11-0.59); #Neutrophils 9.6 thou/uL (1.40-6.50); %Basophils 0.5 % (0.0-1.0); %Eosinophils 0.2 % (0.0-10.0); %Lymphocytes 12.2 % (21.0-51.0); %Neutrophils 80.2 % (42.0-75.0); Hemoglobin 15.9 g/dL (14.0-18.0); Mean Corpuscular HGB CONC 34.8 g/dL (32.0-36.0); Mean Corpuscular Volume 89.3 fl (78.0-98.0); Mean Platelet Volume 7.1 fL (7.4-10.4); Platelet Count 123 10x3/uL (130-400); Red Blood Cell (RBC) Count 5.13 mill/uL (4.70-6.10)
[2023-01-12 16:30] LABS: ALT (SGPT) 43 U/L (8-55); AST (SGOT) 27 U/L (5-34); Albumin 5.2 g/dL (3.5-5.0); Alkaline Phosphatase 103 U/L (40-110); Anion Gap 16 mmol/L (10-20); BUN (Urea Nitrogen) 11 mg/dL (8.9-20.6); Bilirubin, Total 0.5 mg/dL (0.2-1.2); Calc. Creatinine Clearance 0 mL/min (70-130); Calcium 10.7 mg/dL (7.8-10.44); Carbon Dioxide 22 mmol/L (22-29); Chloride 104 mmol/L (98-107); Estimated GFR 67; Globulin 3.6 g/dL (2.4-3.5); Glucose 103 mg/dL (70-105); Potassium 4.3 mmol/L (3.5-5.1); Protein, Total 8.8 g/dL (6.0-8.3); Sodium 138 mmol/L (136-145)
[2023-01-12 16:31] LABS: Acetaminophen Less than 10.0 mcg/mL (10.0-30.0); Alcohol Less than 10 mg/dL (Less than 10); CK (CPK) 146 U/L (30-200); Lipase 54 U/L (8-78); Salicylate Less than 8.0 mg/dL (15.0-30.0)
[2023-01-12 16:33] LABS: SARS-CoV-2 NAA Rapid Test Not Detected (NotDetected)
== END 2023-01-12 17:15 | disposition home or self-care (01) ==
LOC: ERS 14:37
DX: B34.9 Viral infection, unspecified (principal); M79.10 Myalgia, unspecified site; I10 Essential (primary) hypertension; Z20.822 Contact with and (suspected) exposure to COVID-19; Z79.899 Other long term (current) drug therapy
CPT/HCPCS: 0240U; 71045; 74177; 80307; 82550; 82962; 83605; 83690; 84484; 86140; 87040; 93005; 96361; 96374; 99284; 36416; 80053; 84443; 85025; J1885; Q9967

== ENCOUNTER 2023-12-06 13:32 | Emergency (ER) | payer OTHER ==
[2023-12-06 14:24] LABS: #Eosinphils 0.1 thou/uL (0.0-0.7); #Monocytes 0.8 thou/uL (0.11-0.59); #Neutrophils 7.2 thou/uL (1.40-6.50); %Basophils 0.4 % (0.0-1.0); %Eosinophils 0.8 % (0.0-10.0); %Lymphocytes 15.4 % (21.0-51.0); %Monocytes 8.2 % (0.0-10.0); Hematocrit 43.4 % (42.0-52.0); Hemoglobin 14.9 g/dL (14.0-18.0); Mean Corpuscular HGB CONC 34.3 g/dL (32.0-36.0); Mean Corpuscular Hemoglobin 29.7 pg (27.0-31.0); Mean Corpuscular Volume 86.5 fl (78.0-98.0); Mean Platelet Volume 9.3 fL (7.4-10.4); RBC Distribution Width 13.8 % (11.5-14.5); Red Blood Cell (RBC) Count 5.02 mill/uL (4.70-6.10); White Blood Cell (WBC) Count 9.6 10x3/uL (4.8-10.8)
[2023-12-06 14:25] LABS: Platelet Count 101 10x3/uL (130-400)
[2023-12-06 14:41] LABS: ALT (SGPT) 36 U/L (8-55); AST (SGOT) 21 U/L (5-34); Albumin 4.7 g/dL (3.5-5.0); Alkaline Phosphatase 97 U/L (40-110); Anion Gap 15 mmol/L (10-20); BUN (Urea Nitrogen) 11 mg/dL (8.9-20.6); Bilirubin, Total 0.5 mg/dL (0.2-1.2); Calc. Creatinine Clearance 0 mL/min (70-130); Calcium 9.5 mg/dL (7.8-10.44); Carbon Dioxide 18 mmol/L (22-29); Chloride 107 mmol/L (98-107); Estimated GFR 66; Glucose 136 mg/dL (70-105); Potassium 4.4 mmol/L (3.5-5.1); Protein, Total 7.7 g/dL (6.0-8.3); Sodium 136 mmol/L (136-145)
[2023-12-06] MEDS ORDERED: Ketorolac Tromethamine 30 MG (1 mL) VIAL ONE (16:51)
== END 2023-12-06 16:55 | disposition home or self-care (01) ==
LOC: ERS 13:32
DX: K04.7 Periapical abscess without sinus (principal); I10 Essential (primary) hypertension
CPT/HCPCS: 36415; 70487; 80053; 85025; 96372; J1885

== ENCOUNTER 2024-07-09 09:40 | Emergency (ER) | payer OTHER ==
[2024-07-09 12:35] LABS: #Basophils 0.04 10x3/uL (0.0-0.2); %Basophils 0.5 % (0.0-1.0); %Eosinophils 0.7 % (0.0-10.0); %Lymphocytes 13.3 % (21.0-51.0); %Monocytes 9.6 % (0.0-10.0); %Neutrophils 75.4 % (42.0-75.0); Hematocrit 42.8 % (42.0-52.0); Hemoglobin 14.7 g/dL (14.0-18.0); Mean Corpuscular HGB CONC 34.3 g/dL (32.0-36.0); Mean Corpuscular Volume 90.3 fL (78.0-98.0); Mean Platelet Volume 9.8 fL (7.4-10.4); Platelet Count 94 10x3/uL (130-400); RBC Distribution Width 13.9 % (11.5-14.5); Red Blood Cell (RBC) Count 4.74 mill/uL (4.70-6.10)
[2024-07-09 12:55] LABS: ALT (SGPT) 59 U/L (8-55); AST (SGOT) 33 U/L (5-34); Albumin 4.4 g/dL (3.5-5.0); Alkaline Phosphatase 90 U/L (40-110); Anion Gap 13 mmol/L (10-20); BUN (Urea Nitrogen) 6 mg/dL (8.9-20.6); Bilirubin, Total 0.6 mg/dL (0.2-1.2); Calc. Creatinine Clearance 0 mL/min (70-130); Calcium 9.6 mg/dL (7.8-10.44); Carbon Dioxide 20 mmol/L (22-29); Chloride 109 mmol/L (98-107); Estimated GFR 83; Globulin 3.2 g/dL (2.4-3.5); Glucose 102 mg/dL (70-105); Potassium 4.3 mmol/L (3.5-5.1); Protein, Total 7.6 g/dL (6.0-8.3); Sodium 138 mmol/L (136-145)
[2024-07-09 13:10] LABS: Troponin I Less than 0.010 ng/mL (< 0.028)
== END 2024-07-09 14:40 | disposition home or self-care (01) ==
LOC: ERS 09:40
DX: J06.9 Acute upper respiratory infection, unspecified (principal); R07.89 Other chest pain; I10 Essential (primary) hypertension
CPT/HCPCS: 36415; 71045; 80053; 84484; 85025; 87428; 93005

== ENCOUNTER 2024-07-13 16:33 | Emergency (ER) | payer OTHER ==
[2024-07-13] MEDS ORDERED: Ondansetron PF 4 MG/2 ML Vial ONE (18:36)
[2024-07-13] MEDS ORDERED: Famotidine/PF 20 mg/2ml Vial ONE (18:39)
[2024-07-13 18:43] LABS: #Basophils 0.05 10x3/uL (0.0-0.2); #Eosinophils Less than 0.03 10x3/uL (0.0-0.7); %Basophils 0.4 % (0.0-1.0); %Lymphocytes 10.7 % (21.0-51.0); %Monocytes 7.7 % (0.0-10.0); %Neutrophils 79.8 % (42.0-75.0); Hematocrit 47.6 % (42.0-52.0); Hemoglobin 16.7 g/dL (14.0-18.0); Mean Corpuscular HGB CONC 35.1 g/dL (32.0-36.0); Mean Corpuscular Hemoglobin 29.8 pg (27.0-31.0); Mean Corpuscular Volume 84.8 fL (78.0-98.0); Mean Platelet Volume 9.1 fL (7.4-10.4); Platelet Count 123 10x3/uL (130-400); RBC Distribution Width 13.7 % (11.5-14.5); Red Blood Cell (RBC) Count 5.61 mill/uL (4.70-6.10)
[2024-07-13] MEDS ORDERED: Ketorolac Tromethamine 30 MG (1 mL) VIAL ONE (18:49)
[2024-07-13 19:03] LABS: ALT (SGPT) 51 U/L (8-55); AST (SGOT) 27 U/L (5-34); Albumin 4.7 g/dL (3.5-5.0); Alkaline Phosphatase 95 U/L (40-110); Anion Gap 17 mmol/L (10-20); BUN (Urea Nitrogen) 14 mg/dL (8.9-20.6); Bilirubin, Total 0.8 mg/dL (0.2-1.2); Calc. Creatinine Clearance 0 mL/min (70-130); Calcium 10.3 mg/dL (7.8-10.44); Carbon Dioxide 21 mmol/L (22-29); Chloride 108 mmol/L (98-107); Estimated GFR 81; Globulin 3.6 g/dL (2.4-3.5); Glucose 83 mg/dL (70-105); Lipase 52 U/L (8-78); Potassium 3.8 mmol/L (3.5-5.1); Protein, Total 8.3 g/dL (6.0-8.3); Sodium 142 mmol/L (136-145)
[2024-07-13 19:16] LABS: Troponin I Less than 0.010 ng/mL (< 0.028)
[2024-07-13 22:10] LABS: Lactic Acid 2.48 mmol/L (0.5-2.2)
[2024-07-13 23:14] LABS: Bacteria/HPF None Seen HPF (None Seen); Bilirubin Negative (Negative); Blood, Urine Negative (Negative); CAUTI Indications for Culture Dysuria,urgency,freq; Clarity Clear (Clear); Glucose, Urine (Dipstick) Normal (Negative); Ketone, Urine Negative (Negative); Leukocyte Negative Leu/uL (Negative); Nitrite Negative (Negative); Protein, Urine (Dipstick) 20 mg/dL (Neg-Trace); RBC/HPF 0-3 HPF (0-3); Squamous Epithelial 0-3 HPF (0-3); Urobilinogen Normal mg/dL (Less than 2); WBC/HPF 0-3 HPF (0-3); pH, Urine 6.5 (5.0-9.0)
[2024-07-13 23:18] LABS: Urine Culture Reflex No No
[2024-07-13 23:37] LABS: Specific Gravity, Urine Greater than 1.060 (1.002-1.036)
== END 2024-07-14 00:40 | disposition home or self-care (01) ==
LOC: ERS 16:33
DX: N30.90 Cystitis, unspecified without hematuria (principal); I10 Essential (primary) hypertension; E05.90 Thyrotoxicosis, unspecified without thyrotoxic crisis or storm; E16.2 Hypoglycemia, unspecified; Z55.6 Problems related to health literacy
CPT/HCPCS: 71046; 74177; 80053; 81001; 82962; 83605; 83690; 84484; 85025; 93005; J1885; J2405; J3490; 36415; 36416

== ENCOUNTER 2024-07-14 11:20 | Emergency (ER) | payer OTHER ==
[2024-07-14] MEDS ORDERED: Ondansetron ODT 4 MG TAB ONE (12:01)
== END 2024-07-14 12:41 | disposition home or self-care (01) ==
LOC: ERS 11:20
DX: R11.2 Nausea with vomiting, unspecified (principal); I10 Essential (primary) hypertension
CPT/HCPCS: 71046; 74177; 80053; 81001; 82962; 83605; 83690; 84484; 85025; 93005; J1885; J2405; J3490; Q0162; 36415; 36416; 96361; 96374; 96375; 99284; Q9967

== ENCOUNTER 2024-07-15 11:20 | Emergency (ER) | payer OTHER ==
[2024-07-15 12:42] LABS: ALT (SGPT) 50 U/L (8-55); AST (SGOT) 31 U/L (5-34); Albumin 4.5 g/dL (3.5-5.0); Alkaline Phosphatase 83 U/L (40-110); Anion Gap 11 mmol/L (10-20); BUN (Urea Nitrogen) 16 mg/dL (8.9-20.6); Bilirubin, Total 0.8 mg/dL (0.2-1.2); Calc. Creatinine Clearance 0 mL/min (70-130); Calcium 9.9 mg/dL (7.8-10.44); Carbon Dioxide 22 mmol/L (22-29); Chloride 111 mmol/L (98-107); Estimated GFR 75; Glucose 103 mg/dL (70-105); Potassium 4.1 mmol/L (3.5-5.1); Protein, Total 7.5 g/dL (6.0-8.3); Sodium 140 mmol/L (136-145)
[2024-07-15 12:43] LABS: #Basophils 0.04 10x3/uL (0.0-0.2); #Eosinophils Less than 0.03 10x3/uL (0.0-0.7); %Basophils 0.4 % (0.0-1.0); %Eosinophils 0.1 % (0.0-10.0); %Lymphocytes 11.1 % (21.0-51.0); %Monocytes 7.7 % (0.0-10.0); %Neutrophils 79.6 % (42.0-75.0); Hematocrit 46.7 % (42.0-52.0); Hemoglobin 15.6 g/dL (14.0-18.0); Mean Corpuscular HGB CONC 33.4 g/dL (32.0-36.0); Mean Corpuscular Hemoglobin 30.2 pg (27.0-31.0); Mean Corpuscular Volume 90.5 fL (78.0-98.0); Mean Platelet Volume 8.9 fL (7.4-10.4); Platelet Count 133 10x3/uL (130-400); RBC Distribution Width 13.6 % (11.5-14.5); Red Blood Cell (RBC) Count 5.16 mill/uL (4.70-6.10)
[2024-07-15 13:41] LABS: Bacteria/HPF None Seen HPF (None Seen); Bilirubin Negative (Negative); Blood, Urine Negative (Negative); CAUTI Indications for Culture Alt mental st,lethar; Clarity Clear (Clear); Glucose, Urine (Dipstick) Normal (Negative); Ketone, Urine Negative (Negative); Leukocyte Negative Leu/uL (Negative); Nitrite Negative (Negative); Protein, Urine (Dipstick) Negative (Neg-Trace); RBC/HPF None Seen HPF (0-3); Specific Gravity, Urine 1.001 (1.002-1.036); Squamous Epithelial 0-3 HPF (0-3); Urobilinogen Normal mg/dL (Less than 2); WBC/HPF 0-3 HPF (0-3)
[2024-07-15 13:48] LABS: Urine Culture Reflex No No
[2024-07-15] MEDS ORDERED: Ondansetron PF 4 MG/2 ML Vial ONE (14:34)
== END 2024-07-15 15:57 | disposition home or self-care (01) ==
LOC: ERS 11:20
DX: R11.2 Nausea with vomiting, unspecified (principal); I10 Essential (primary) hypertension; E03.9 Hypothyroidism, unspecified; E16.2 Hypoglycemia, unspecified; E05.90 Thyrotoxicosis, unspecified without thyrotoxic crisis or storm; Z79.899 Other long term (current) drug therapy
CPT/HCPCS: 80053; 81001; 83605; 85025; 96361; 96374; 99284; J2405; 36415

== ENCOUNTER 2024-07-16 16:29 | Emergency (ER) | payer OTHER ==
[2024-07-16 18:48] LABS: ALT (SGPT) 47 U/L (8-55); AST (SGOT) 29 U/L (5-34); Albumin 4.7 g/dL (3.5-5.0); Alkaline Phosphatase 86 U/L (40-110); Anion Gap 14 mmol/L (10-20); BUN (Urea Nitrogen) 13 mg/dL (8.9-20.6); Bilirubin, Total 0.8 mg/dL (0.2-1.2); Calc. Creatinine Clearance 0 mL/min (70-130); Carbon Dioxide 24 mmol/L (22-29); Chloride 106 mmol/L (98-107); Estimated GFR 81; Globulin 3.1 g/dL (2.4-3.5); Glucose 90 mg/dL (70-105); Potassium 3.7 mmol/L (3.5-5.1); Protein, Total 7.8 g/dL (6.0-8.3); Sodium 140 mmol/L (136-145)
[2024-07-16 18:53] LABS: Troponin I Less than 0.010 ng/mL (< 0.028)
[2024-07-16 19:27] LABS: #Basophils 0.04 10x3/uL (0.0-0.2); #Eosinophils Less than 0.03 10x3/uL (0.0-0.7); %Basophils 0.3 % (0.0-1.0); %Lymphocytes 13.1 % (21.0-51.0); %Monocytes 7.9 % (0.0-10.0); %Neutrophils 77.7 % (42.0-75.0); Mean Corpuscular HGB CONC 34.8 g/dL (32.0-36.0); Mean Corpuscular Hemoglobin 30.2 pg (27.0-31.0); Platelet Count 124 10x3/uL (130-400); RBC Distribution Width 13.5 % (11.5-14.5); Red Blood Cell (RBC) Count 5.29 mill/uL (4.70-6.10)
[2024-07-16 19:56] LABS: Bacteria/HPF None Seen HPF (None Seen); Bilirubin Negative (Negative); Blood, Urine Negative (Negative); CAUTI Indications for Culture Immunosuppressed; Clarity Clear (Clear); Glucose, Urine (Dipstick) Normal (Negative); Ketone, Urine Negative (Negative); Leukocyte Negative Leu/uL (Negative); Nitrite Negative (Negative); Protein, Urine (Dipstick) Negative (Neg-Trace); RBC/HPF None Seen HPF (0-3); Squamous Epithelial 0-3 HPF (0-3); Urobilinogen Normal mg/dL (Less than 2); WBC/HPF 0-3 HPF (0-3)
[2024-07-16 20:03] LABS: Specific Gravity, Urine 1.005 (1.002-1.036)
[2024-07-16 20:05] LABS: Urine Culture Reflex No No; Urine Culture Reflex Yes Yes
== END 2024-07-16 20:30 | disposition home or self-care (01) ==
LOC: ERS 16:29
DX: R53.1 Weakness (principal); E86.0 Dehydration; I10 Essential (primary) hypertension
CPT/HCPCS: 36415; 71045; 80053; 81001; 83605; 84484; 85025; 87040; 87086; 87428; 93005

== ENCOUNTER 2024-07-19 15:14 | Emergency (ER) | payer OTHER ==
[2024-07-19 16:53] LABS: #Basophils 0.04 10x3/uL (0.0-0.2); #Eosinophils Less than 0.03 10x3/uL (0.0-0.7); %Basophils 0.4 % (0.0-1.0); %Lymphocytes 12.4 % (21.0-51.0); %Monocytes 8.1 % (0.0-10.0); %Neutrophils 78.1 % (42.0-75.0); Hematocrit 46.9 % (42.0-52.0); Mean Corpuscular HGB CONC 34.1 g/dL (32.0-36.0); Mean Corpuscular Hemoglobin 30.2 pg (27.0-31.0); Mean Corpuscular Volume 88.7 fL (78.0-98.0); Mean Platelet Volume 9.1 fL (7.4-10.4); Platelet Count 131 10x3/uL (130-400); RBC Distribution Width 13.6 % (11.5-14.5); Red Blood Cell (RBC) Count 5.29 mill/uL (4.70-6.10)
[2024-07-19 17:03] LABS: ALT (SGPT) 43 U/L (8-55); AST (SGOT) 26 U/L (5-34); Albumin 4.7 g/dL (3.5-5.0); Alkaline Phosphatase 87 U/L (40-110); Anion Gap 12 mmol/L (10-20); BUN (Urea Nitrogen) 11 mg/dL (8.9-20.6); Bilirubin, Total 0.8 mg/dL (0.2-1.2); Calc. Creatinine Clearance 0 mL/min (70-130); Calcium 10.2 mg/dL (7.8-10.44); Carbon Dioxide 24 mmol/L (22-29); Chloride 108 mmol/L (98-107); Estimated GFR 89; Globulin 3.1 g/dL (2.4-3.5); Glucose 115 mg/dL (70-105); Lipase 51 U/L (8-78); Magnesium 2.7 mg/dL (1.6-2.6); Potassium 4.1 mmol/L (3.5-5.1); Protein, Total 7.8 g/dL (6.0-8.3); Sodium 140 mmol/L (136-145)
[2024-07-19 17:04] LABS: Troponin I Less than 0.010 ng/mL (< 0.028)
[2024-07-19 17:29] LABS: Bacteria/HPF None Seen HPF (None Seen); Bilirubin Negative (Negative); Blood, Urine Negative (Negative); CAUTI Indications for Culture Acute Hematuria; Clarity Clear (Clear); Glucose, Urine (Dipstick) Normal (Negative); Ketone, Urine Negative (Negative); Leukocyte Negative Leu/uL (Negative); Nitrite Negative (Negative); Protein, Urine (Dipstick) Negative (Neg-Trace); RBC/HPF 0-3 HPF (0-3); Specific Gravity, Urine 1.002 (1.002-1.036); Squamous Epithelial 0-3 HPF (0-3); Urobilinogen Normal mg/dL (Less than 2); WBC/HPF 0-3 HPF (0-3); pH, Urine 7.5 (5.0-9.0)
[2024-07-19 17:31] LABS: Urine Culture Reflex No No
[2024-07-19] MEDS ORDERED: Ketorolac Tromethamine 30 MG (1 mL) VIAL ONE (17:39)
[2024-07-19] MEDS ORDERED: Promethazine HCl 25 MG/ML VIAL ONE (17:39)
== END 2024-07-19 18:20 | disposition home or self-care (01) ==
LOC: ERS 15:14
DX: R10.9 Unspecified abdominal pain (principal); R11.0 Nausea; I10 Essential (primary) hypertension; Z55.6 Problems related to health literacy
CPT/HCPCS: 80053; 81001; 83690; 83735; 84484; 85025; 93005; 96374; 96375; 99284; J1885; J2550; 36415

== ENCOUNTER 2024-09-21 07:11 | Emergency (ER) | payer OTHER ==
[2024-09-21 09:04] LABS: ALT (SGPT) 38 U/L (8-55); AST (SGOT) 21 U/L (5-34); Albumin 4.8 g/dL (3.5-5.0); Alkaline Phosphatase 102 U/L (40-110); Anion Gap 16 mmol/L (10-20); BUN (Urea Nitrogen) 11 mg/dL (8.9-20.6); Bilirubin, Total 0.9 mg/dL (0.2-1.2); Calc. Creatinine Clearance 0 mL/min (70-130); Calcium 9.6 mg/dL (7.8-10.44); Carbon Dioxide 20 mmol/L (22-29); Chloride 109 mmol/L (98-107); Estimated GFR 75; Globulin 3.6 g/dL (2.4-3.5); Glucose 104 mg/dL (70-105); Potassium 3.8 mmol/L (3.5-5.1); Protein, Total 8.4 g/dL (6.0-8.3); Sodium 141 mmol/L (136-145)
[2024-09-21] MEDS ORDERED: Ondansetron ODT 4 MG TAB ONE (10:00)
[2024-09-21 10:10] LABS: #Basophils 0.05 10x3/uL (0.0-0.2); %Basophils 0.4 % (0.0-1.0); %Eosinophils 0.5 % (0.0-10.0); %Lymphocytes 5.7 % (21.0-51.0); %Monocytes 6.9 % (0.0-10.0); %Neutrophils 85.9 % (42.0-75.0); Hematocrit 47.2 % (42.0-52.0); Mean Corpuscular HGB CONC 33.9 g/dL (32.0-36.0); Mean Corpuscular Hemoglobin 29.3 pg (27.0-31.0); Mean Corpuscular Volume 86.4 fL (78.0-98.0); Mean Platelet Volume 8.7 fL (7.4-10.4); Platelet Count 116 10x3/uL (130-400); RBC Distribution Width 13.7 % (11.5-14.5); Red Blood Cell (RBC) Count 5.46 mill/uL (4.70-6.10)
== END 2024-09-21 11:13 | disposition home or self-care (01) ==
LOC: ERS 07:11
DX: R05.9 Cough, unspecified (principal); R11.0 Nausea; I10 Essential (primary) hypertension
CPT/HCPCS: 71045; 80053; 85025; 87428; Q0162; 36415

== ENCOUNTER 2025-08-19 11:30 | Inpatient (IN) | payer OTHER ==
[2025-08-19 13:10] LABS: Bacteria/HPF None Seen HPF (None Seen); CAUTI Indications for Culture Dysuria,urgency,freq; Glucose, Urine (Dipstick) Normal (Negative); Leukocyte Negative Leu/uL (Negative); Protein, Urine (Dipstick) Negative (Neg-Trace); RBC/HPF None Seen HPF (0-3); Specific Gravity, Urine 1.002 (1.002-1.036); WBC/HPF None Seen HPF (0-3)
[2025-08-19 13:17] LABS: Urine Culture Reflex No No
[2025-08-19 14:50] LABS: #Basophils 0.03 10x3/uL (0.0-0.2); #Eosinophils Less than 0.03 10x3/uL (0.0-0.7); #Monocytes 0.70 10x3/uL (0.11-0.59); #Neutrophils 7.24 10x3/uL (1.40-6.50); %Basophils 0.3 % (0.0-1.0); %Eosinophils 0.0 % (0.0-10.0); %Lymphocytes 7.6 % (21.0-51.0); %Monocytes 8.0 % (0.0-10.0); %Neutrophils 83.1 % (42.0-75.0); Hematocrit 36.5 % (42.0-52.0); Hemoglobin 12.0 g/dL (14.0-18.0); Mean Corpuscular Hemoglobin 30.0 pg (27.0-31.0); Mean Corpuscular Volume 91.3 fL (78.0-98.0); Platelet Count 76 10x3/uL (130-400); Red Blood Cell (RBC) Count 4.00 mill/uL (4.70-6.10); White Blood Cell (WBC) Count 8.72 10x3/uL (4.8-10.8)
[2025-08-19] MEDS ORDERED: Ondansetron PF 4 MG/2 ML Vial ONE ×2 (14:54→19:47)
[2025-08-19 15:07] LABS: ALT (SGPT) 36 U/L (Less than 45); AST (SGOT) 36 U/L (11-34); Albumin 4.0 g/dL (3.1-4.5); Alkaline Phosphatase 93 U/L (40-110); Anion Gap 14 mmol/L (10-20); BUN (Urea Nitrogen) 8 mg/dL (8.9-20.6); Bilirubin, Total 1.0 mg/dL (0.3-1.2); Calc. Creatinine Clearance 0 mL/min (70-130); Calcium 9.6 mg/dL (7.8-10.44); Carbon Dioxide 25 mmol/L (22-29); Chloride 111 mmol/L (98-107); Globulin 3.4 g/dL (2.4-3.5); Glucose 119 mg/dL (70-105); Lipase 33 U/L (8-78); Potassium 3.4 mmol/L (3.5-5.1); Sodium 147 mmol/L (136-145)
[2025-08-19 15:15] LABS: Macrocytosis SLIGHT = 6-15 cells HPF (0-5); Platelet Adequacy Comment Platelets Decreased
[2025-08-19 18:21] LABS: INR-International Normal Ratio 1.2; Prothrombin Time 15.1 sec (12.0-14.7)
[2025-08-19 18:22] LABS: Acetaminophen Less than 10 mcg/mL (Less than 10); PTT 28.4 sec (22.9-36.1); Salicylate Less than 8.0 mg/dL (Less than 8.0)
[2025-08-19 19:31] LABS: Cocaine Metabolite Screen Negative (Negative); THC/Cannabinoid Screen PRELIM POSITIVE (Negative); Tricyclic Screen PRELIM POSITIVE (Negative)
[2025-08-19] MEDS ORDERED: cefTRIAXone (ROCEPHIN) 1 GM VIAL ONE (19:47)
[2025-08-19] MEDS ORDERED: Mag-Al 1200 mg/1200 mg/30 ML UDCUP ONE (19:47)
[2025-08-19] MEDS ORDERED: Lidocaine Viscous Sol 2% 15 ml UD Cup ONE (19:48)
[2025-08-19] MEDS ORDERED: Ondansetron PF 4 MG/2 ML Vial IVP PRN (20:16)
[2025-08-19 21:11] LABS: Magnesium 2.1 mg/dL (1.6-2.6)
[2025-08-19 22:05] LABS: Lithium 0.455 mmol/L (1.0-1.2)
[2025-08-19] MEDS: NIFEdipine 10 MG CAP PO SCH (23:12)
[2025-08-19 23:14] VITALS: BMI 43.3
[2025-08-19 23:20] LABS: Hep A IgM AB NONREACTIVE (NonReactive); Hep A IgM S/CO 0.23 S/CO (0-0.79); Hep B Core IgM Index 0.14 S/CO (0-0.79); Hep B Surf Ag NONREACTIVE S/CO (NonReactive); Hep C IgG Ab NONREACTIVE S/CO (NonReactive); Hep C Index 0.07 S/CO (0-0.79)
[2025-08-19] MEDS: Metoclopramide HCl 10 MG (2 mL) VIAL IVP SCH (23:44)
[2025-08-20] MEDS ORDERED: Nystatin Powder 15 GM BOT TOP PRN (00:17)
[2025-08-20] MEDS: hydrALAZINE 20 MG/ML VIAL SLOW IVP SCH (00:33)
[2025-08-20 01:21] LABS: #Basophils 0.03 10x3/uL (0.0-0.2); #Eosinophils Less than 0.03 10x3/uL (0.0-0.7); #Monocytes 0.64 10x3/uL (0.11-0.59); #Neutrophils 7.02 10x3/uL (1.40-6.50); %Basophils 0.4 % (0.0-1.0); %Eosinophils 0.0 % (0.0-10.0); %Lymphocytes 6.8 % (21.0-51.0); %Monocytes 7.6 % (0.0-10.0); %Neutrophils 83.7 % (42.0-75.0); Hematocrit 37.5 % (42.0-52.0); Hemoglobin 12.0 g/dL (14.0-18.0); Mean Corpuscular Hemoglobin 30.3 pg (27.0-31.0); Mean Corpuscular Volume 94.7 fL (78.0-98.0); Platelet Count 85 10x3/uL (130-400); Red Blood Cell (RBC) Count 3.96 mill/uL (4.70-6.10); White Blood Cell (WBC) Count 8.39 10x3/uL (4.8-10.8)
[2025-08-20 02:57] LABS: ALT (SGPT) 36 U/L (Less than 45); AST (SGOT) 38 U/L (11-34); Albumin 3.8 g/dL (3.1-4.5); Alkaline Phosphatase 92 U/L (40-110); Anion Gap 16 mmol/L (10-20); BUN (Urea Nitrogen) 9 mg/dL (8.9-20.6); Bilirubin, Total 0.8 mg/dL (0.3-1.2); Calc. Creatinine Clearance 153 mL/min (70-130); Calcium 8.7 mg/dL (7.8-10.44); Carbon Dioxide 23 mmol/L (22-29); Chloride 107 mmol/L (98-107); Globulin 3.3 g/dL (2.4-3.5); Glucose 146 mg/dL (70-105); Potassium 3.0 mmol/L (3.5-5.1); Sodium 143 mmol/L (136-145)
[2025-08-20] MEDS ORDERED: Potassium Chloride 40 MEQ in Premix 1 BAG IVPB SCH (03:30)
[2025-08-20] MEDS: hydrALAZINE 20 MG/ML VIAL SLOW IVP PRN ×2 (04:27→15:46)
[2025-08-20] MEDS: Potassium Chloride 20 MEQ in Premix 1 BAG IVPB SCH ×2 (04:28→09:21)
[2025-08-20 06:39] LABS: Magnesium 2.2 mg/dL (1.6-2.6)
[2025-08-20] MEDS: Enoxaparin 40 MG (0.4 mL) SYRINGE SC SCH (09:22)
[2025-08-20] MEDS: LITHIUM CARBONATE 450 MG PO SCH (09:22)
[2025-08-20] MEDS: Aspirin 81 mg Enteric Coated Tablet PO SCH (09:23)
[2025-08-20] MEDS: Fluconazole 100 MG TAB PO SCH (09:23)
[2025-08-20] MEDS: FLU (Fluarix Triv) 25-26 (6MOS UP)/PF 45 MCG/0.5 ML Syringe IM ONE (09:24)
[2025-08-20] MEDS: NIFEdipine XL 30 MG ER.TAB PO SCH ×2 (11:45→20:35)
[2025-08-20] MEDS: Melatonin 3 MG TAB PO SCH (13:15)
[2025-08-20] MEDS: Acetaminophen 325 MG TAB PO PRN (15:45)
[2025-08-20] MEDS ORDERED: cefTRIAXone\\ROCEPHIN 1 GM in Sodium Chloride 0.9% 100 ML IVPB SCH (20:00)
[2025-08-20] MEDS: cefTRIAXone\\ROCEPHIN 2 GM in Sodium Chloride 0.9% 100 ML IVPB SCH ×2 (20:33→20:45)
[2025-08-21 09:47] LABS: Anion Gap 13 mmol/L (10-20); BUN (Urea Nitrogen) 9 mg/dL (8.9-20.6); Calc. Creatinine Clearance 160 mL/min (70-130); Calcium 9.1 mg/dL (7.8-10.44); Carbon Dioxide 22 mmol/L (22-29); Chloride 115 mmol/L (98-107); Glucose 155 mg/dL (70-105); Potassium 3.2 mmol/L (3.5-5.1); Sodium 147 mmol/L (136-145)
[2025-08-21] MEDS: cloNIDine 0.1 MG TAB PO SCH (19:13)
[2025-08-21] MEDS: cefTRIAXone\\ROCEPHIN 2 GM in Sodium Chloride 0.9% 100 ML IVPB SCH (21:02)
[2025-08-22 04:59] LABS: #Basophils 0.04 10x3/uL (0.0-0.2); #Eosinophils 0.03 10x3/uL (0.0-0.7); #Monocytes 0.94 10x3/uL (0.11-0.59); #Neutrophils 6.39 10x3/uL (1.40-6.50); %Basophils 0.5 % (0.0-1.0); %Eosinophils 0.3 % (0.0-10.0); %Lymphocytes 14.9 % (21.0-51.0); %Monocytes 10.7 % (0.0-10.0); %Neutrophils 72.8 % (42.0-75.0); Hematocrit 38.4 % (42.0-52.0); Hemoglobin 12.0 g/dL (14.0-18.0); Mean Corpuscular Hemoglobin 29.6 pg (27.0-31.0); Mean Corpuscular Volume 94.6 fL (78.0-98.0); Platelet Count 96 10x3/uL (130-400); Red Blood Cell (RBC) Count 4.06 mill/uL (4.70-6.10); White Blood Cell (WBC) Count 8.78 10x3/uL (4.8-10.8)
[2025-08-22 05:11] LABS: Anion Gap 13 mmol/L (10-20); BUN (Urea Nitrogen) 6 mg/dL (8.9-20.6); Calc. Creatinine Clearance 170 mL/min (70-130); Calcium 8.3 mg/dL (7.8-10.44); Carbon Dioxide 24 mmol/L (22-29); Chloride 110 mmol/L (98-107); Glucose 87 mg/dL (70-105); Potassium 3.5 mmol/L (3.5-5.1); Sodium 143 mmol/L (136-145)
[2025-08-22] MEDS: cloNIDine 0.1 MG TAB PO SCH (08:34)
[2025-08-22 11:54] VITALS: BP 138/68; TEMP 97.3
== END 2025-08-22 14:02 | disposition home or self-care (01) | DRG 193 ==
LOC: ERS 11:30 → OBSVTOIN 20:18 → OBS 20:18
PROVIDERS: ADMIT Internal Medicine; ATTEND Internal Medicine
DX: J18.9 Pneumonia, unspecified organism (principal); A41.9 Sepsis, unspecified organism; Z68.41 Body mass index [BMI] 40.0-44.9, adult; E05.90 Thyrotoxicosis, unspecified without thyrotoxic crisis or storm; E55.9 Vitamin D deficiency, unspecified; E16.2 Hypoglycemia, unspecified; F43.10 Post-traumatic stress disorder, unspecified; F41.8 Other specified anxiety disorders; F60.7 Dependent personality disorder; I10 Essential (primary) hypertension; R16.2 Hepatomegaly with splenomegaly, not elsewhere classified; E66.01 Morbid (severe) obesity due to excess calories; G47.33 Obstructive sleep apnea (adult) (pediatric); K76.0 Fatty (change of) liver, not elsewhere classified; F12.10 Cannabis abuse, uncomplicated; F31.9 Bipolar disorder, unspecified; E87.6 Hypokalemia; I16.0 Hypertensive urgency; F60.6 Avoidant personality disorder; Z98.890 Other specified postprocedural states; Z88.8 Allergy status to other drugs, medicaments and biological substances; Z79.899 Other long term (current) drug therapy; Z79.890 Hormone replacement therapy; Z79.51 Long term (current) use of inhaled steroids; Z23 Encounter for immunization
CPT/HCPCS: 36415; 36416; 70450; 71045; 71275; 74177; 80048; 80053; 80074; 80178; 80306; 80307; 81001; 82140; 83605; 83690; 83735; 83880; 84100; 84145; 84484; 85025; 85379; 85610; 85730; 87040; 87081; 87428; 87430; 90656; 93005; 93306; 93970; 96361; 96374; 96375; 96376; J0360; J0696; J1650; J2405; J2765; J3480; Q0162; Q9967

== ENCOUNTER 2025-10-01 16:11 | Emergency (ER) | payer OTHER | END 2025-10-01 17:45 | disposition home or self-care (01) | LOC: ERS 16:11 | DX: R19.7 Diarrhea, unspecified (principal); I10 Essential (primary) hypertension; E05.90 Thyrotoxicosis, unspecified without thyrotoxic crisis or storm; Z79.899 Other long term (current) drug therapy | CPT/HCPCS: 99283 ==